=== PATIENT | male | born 1970 | race Caucasian/White ===

== ENCOUNTER 2017-10-30 16:23 | Inpatient (IN) ==
[2017-10-30] MEDS ORDERED: Sod Chloride 0.9% Inj 1,000 ML IV.SIG ONE ×2 (17:05→18:33)
[2017-10-30] MEDS ORDERED: Morphine Inj 4 MG/ML Vial IV.PUSH ONE (17:05)
--- NOTE | 2017-10-30 17:09 | ED ---
HPI General Chief Complaint: Abdominal Pain Stated Complaint: Abd pain Time Seen by Provider: 10/30/17 16:58 Source: patient Mode of arrival: ambulatory Limitations: no limitations History of Present Illness MD complaint: abdominal pain Onset (ago): day(s) (3) Pain Consistency: intermittent Location: epigastric Severity: mild Severity scale (1-10): 4 Quality: fullness Radiation: none Migration to: no migration Relieving factors: nothing Exacerbating factors: nothing Associated symptoms: denies other symptoms Related Data Home Medications Medication Instructions Recorded Confirmed No Known Home Medications 10/30/17 10/30/17 Allergies Allergy/AdvReac Type Severity Reaction Status Date / Time No Known Allergies Allergy Verified 10/30/17 16:55 Review of Systems ROS: all other systems reviewed are negative PMFSH History History Provided By: Patient Surgical History Surgical History H/O hernia repair (Acute) History of appendectomy (Acute) History of tonsillectomy (Acute) Social History Social History Substance History: No History of Abuse Smoking Status: Current every day smoker Tobacco Type: Cigarettes How Often Do You Have a Drink Containing Alcohol: Monthly or less Recent Travel in [place] within the Last 8 Weeks: No Recent Out of Country Travel within the Last 8 Weeks: No Immunization History Tetanus Immunization: Unsure Hx Influenza Vaccine This Season: No Exam HENMT Head: normocephalic and atraumatic Nose: no nasal discharge and no epistaxis Mouth: moist mucous membranes Eyes Sclera: normal sclerae Pupils: PERRL Neck Neck: trachea midline and no JVD Resp Effort & Inspection: no use of accessory muscles Auscultation: clear to auscultation bilaterally Cardio Rate: regular rate Rhythm: regular rhythm Heart Sounds: no murmurs GI Inspection: non-distended Palpation: soft, no hepatosplenomegaly and tender (epigastric) in the epigastrum , in the RUQ and Tillman's sign positive Percussion: normal to percussion Auscultation: normal bowel sounds Skin General: dry skin (warm) Neuro General: alert and awake Cranial Nerves: other Speech: speech normal Motor: no movement abnormalities noted Extrem General: normal to inspection, no clubbing, no cyanosis and no edema Psych Mood: congruent mood Affect: normal affect Judgment: judgment good Course Initial Documented Vital Signs Temperature 98.0 F 10/30/17 16:27 Pulse Rate 107 H 10/30/17 16:27 Respiratory Rate 18 10/30/17 16:27 Blood Pressure 134/72 10/30/17 16:27 Pulse Oximetry 100 10/30/17 16:27 Last Documented Vital Signs Temperature 98.0 F 10/30/17 16:27 Pulse Rate 107 H 10/30/17 16:27 Respiratory Rate 18 10/30/17 16:27 Blood Pressure 134/72 10/30/17 16:27 Pulse Oximetry 100 10/30/17 16:27 Medical Decision Making MDM Narrative Medical decision making narrative: CBC shows mild leukocytosis of 13,000 with 78 % neutrophilia, no anemia, normal platelet count. Normal kidney liver and pancreatic functions Normal electrolytes CT abdomen and pelvis read by radiologist shows cholelithiasis in addition there is also pericholecystic wall thickening and inflammatory stranding characteristic and consistent with cholecystitis Medical Screen Exam Complete: Yes Emergency Medical Condition: Yes Differential Diagnosis Differential Diagnosis: colitis v pancreatitis v hepatitits v biliary colic v cholecystitis versus perforated ulcer Medical Records Medical records reviewed: Yes I reviewed the patient's medical records. Lab Data Lab results reviewed: Yes I reviewed the patient's lab results. Result diagrams: 10/30/17 17:37 10/30/17 17:37 Lab Results 10/30/17 10/30/17 Range/Units 17:37 17:37 WBC 13.2 H (4.0-11.0) th/mm3 RBC 4.16 L (4.50-5.90) mil/mm3 Hgb 13.0 (13.0-17.0) gm/dL Hct 37.8 L (39.0-51.0) % MCV 91.0 (80.0-100.0) fL MCH 31.2 (27.0-34.0) pg MCHC 34.3 (32.0-36.0) % RDW 13.2 (11.6-17.2) % Plt Count 217 (150-450) th/mm3 MPV 7.9 (7.0-11.0) fL Neut % (Auto) 77.8 H (16.0-70.0) % Lymph % (Auto) 12.0 (9.0-44.0) % [place] % (Auto) 8.3 H (0.0-8.0) % Eos % (Auto) 1.3 (0.0-4.0) % Baso % (Auto) 0.6 (0.0-2.0) % Neut # (Auto) 10.3 H (1.8-7.7) th/mm3 Lymph # (Auto) 1.6 (1.0-4.8) th/mm3 [place] # (Auto) 1.1 H (0.0-0.9) th/mm3 Eos # (Auto) 0.2 (0.0-0.4) th/mm3 Baso # (Auto) 0.1 (0.0-0.2) th/mm3 WBC Differential . Differential Comment Auto diff final Sodium 139 (136-145) meq/L Potassium 3.7 (3.5-5.1) meq/L Chloride 102 (98-107) meq/L Carbon Dioxide 28.4 (21.0-32.0) meq/L Anion Gap 9 (5-15) meq/L BUN 20 H (7-18) mg/dL Creatinine 1.00 (0.60-1.30) mg/dL Estimated GFR 80 L (>89) mL/min Random Glucose 91 (74-106) mg/dL Calcium 9.2 (8.5-10.1) mg/dL Total Bilirubin 1.0 (0.2-1.0) mg/dL AST 22 (15-37) U/L ALT 23 (12-78) U/L Alkaline Phosphatase 49 (45-117) U/L Total Protein 7.4 (6.4-8.2) g/dL Albumin 3.6 (3.4-5.0) g/dL Lipase 58 L (73-393) U/L Imaging Data Attestation: I personally reviewed and interpreted this imaging study as follows : Radiologist's impression: Abdomen/Pelvis CT 10/30/17 17:05 CONCLUSION: 1. There is cholelithiasis, gallbladder wall thickening and pericholecystic inflammatory stranding characteristic of cholecystitis. 2. Atherosclerosis. 3. Nonobstructing right renal calculi. 4. Tiny cyst is noted in the right lobe of the liver measuring 8 mm. Discharge Plan Discharge Disposition Patient Disposition: 30 Still Patient Discharge Condition Condition: Stable Discharge Details Diagnosis: Acute cholecystitis due to biliary calculus Physicians Team ED Provider: Alireza Dior Primary Care Provider: Primary Care Olga Cramer Rxs /Orders / Referrals /Forms Prescriptions: No Action No Known Home Medications RF: 0 Status ED Status: With Doctor
--- NOTE | 2017-10-30 17:58 | CT ---
EXAM DATE: 10/30/2017 5:53 PM EDT AGE/SEX: 46 years / Male INDICATIONS: Diffuse abdominal pain. CLINICAL DATA: This is the patient's initial encounter. Patient reports that signs and symptoms have been present for 1 day and indicates a pain score of 6/10. MEDICAL/SURGICAL HISTORY: None. . Appendectomy. Hernia repair. RADIATION DOSE: 6.64 CTDI (mGy) COMPARISON: No prior exams available for comparison. TECHNIQUE: Multiple contiguous axial images were obtained through the abdomen. Images were obtained using multiple row detector helical technique. Using automated exposure control and adjustment of the mA and/or kV according to patient size, radiation dose was kept as low as reasonably achievable to o btain optimal diagnostic quality images. DICOM format image data is available electronically for rev iew and comparison. FINDINGS: Lung bases are clear. The osseous structures are intact. No pleural or pericardial effusions are seen . Cholelithiasis is noted. The gallbladder is thick walled with induration of the pericholecystic fat . This is characteristic of cholecystitis. Left kidney, spleen, pancreas, adrenal glands are unremark able. 8 mm hepatic cyst. At the midpole of the right kidney are 2 tiny nonobstructing stones with a n onobstructing calculus at the lower pole as well.. Tiny fat-containing umbilical hernia. A few scatte red atherosclerotic calcifications of the aorta and iliac vessels are noted. Urinary bladder is unrem arkable. No evidence of bowel obstruction. Stomach, small bowel, large bowel are normal in appearance . CONCLUSION: 1. There is cholelithiasis, gallbladder wall thickening and pericholecystic inflammatory stranding c haracteristic of cholecystitis. 2. Atherosclerosis. 3. Nonobstructing right renal calculi. 4. Tiny cyst is noted in the right lobe of the liver measuring 8 mm. Electronically signed by: Keshav Villeda MD 10/30/2017 5:57 PM EDT
[2017-10-30 18:28] LABS: Baso # (Auto) 0.1 th/mm3 (0.0-0.2); Baso % (Auto) 0.6 % (0.0-2.0); Eos # (Auto) 0.2 th/mm3 (0.0-0.4); Eos % (Auto) 1.3 % (0.0-4.0); Hematocrit 37.8 % (39.0-51.0); Lymph # (Auto) 1.6 th/mm3 (1.0-4.8); Mean Corpuscular HGB Conc 34.3 % (32.0-36.0); Mean Corpuscular Hemoglobin 31.2 pg (27.0-34.0); Mean Platelet Volume 7.9 fL (7.0-11.0); Mono # (Auto) 1.1 th/mm3 (0.0-0.9); Mono % (Auto) 8.3 % (0.0-8.0); Neut # (Auto) 10.3 th/mm3 (1.8-7.7); Neut % (Auto) 77.8 % (16.0-70.0); Platelet Count 217 th/mm3 (150-450); Red Blood Count 4.16 mil/mm3 (4.50-5.90); Red Cell Distribution Width 13.2 % (11.6-17.2); White Blood Count 13.2 th/mm3 (4.0-11.0)
[2017-10-30] MEDS ORDERED: Piperacil/Tazo 3.375 GM Premix 50 ML IV.SIG ONE (18:33)
[2017-10-30 18:51] LABS: Albumin 3.6 g/dL (3.4-5.0); Anion Gap 9 meq/L (5-15); Aspartate Aminotransferase 22 U/L (15-37); Blood Urea Nitrogen 20 mg/dL (7-18); Calcium 9.2 mg/dL (8.5-10.1); Carbon Dioxide 28.4 meq/L (21.0-32.0); Chloride 102 meq/L (98-107); Glomerular Filtration Rate 80 mL/min (>89); Glucose,Random 91 mg/dL (74-106); Lipase 58 U/L (73-393); Potassium 3.7 meq/L (3.5-5.1); Sodium 139 meq/L (136-145)
[2017-10-30 18:53] LABS: Alanine Aminotransferase 23 U/L (12-78)
[2017-10-30 18:54] LABS: Alkaline Phosphatase 49 U/L (45-117); Total Protein 7.4 g/dL (6.4-8.2)
[2017-10-30 20:21] LABS: Bilirubin,Urine Negative (Negative); Clarity,Urine Clear (Clear); Color,Urine Straw (Yellw/Straw); Glucose,Urine (UA) Negative (Negative); Leukocyte Esterase,Urine Negative (Negative); Nitrite,Urine Negative (Negative); Specific Gravity,Urine 1.005 (1.002-1.035)
--- NOTE | 2017-10-30 20:55 | P.HP ---
History of Present Illness Service: [facility] Primary Care Physician: No Primary Care Physician History of Present Illness: 46-year-old male with no significant past medical history presents the emergency department for evaluation of abdominal pain 3 days. The patient reports that 3 days ago he began having epigastric abdominal pain. He denies any nausea/vomiting. No fevers/chills. No chest pain or shortness of breath. CT concerning for acute cholecystitis. Inpatient Certification: I certify that the inpatient services were ordered in accordance with Medicare regulations governing the order. This includes certification that hospital inpatient services are reasonable and necessary and in the case of services not specified as inpatient-only under 42 CFR 419.22(n), that they are appropriately provided as inpatient services in accordance to with the 2-midnight benchmark under 43 CFR 412.3(e) Estimated Total Length of Stay (Days): 2 Plans for Post Hospital Care: Home Review of Systems All other systems reviewed negative except as stated in HPI [facility] - History History Provided By: Patient - Medical History Medical History: Medical History (Last Updated 10/30/17 @ 20:53 by Ciara Jimenez MD) No active medical problems No pertinent past medical history - Surgical History Surgical History: Surgical History (Last Reviewed 10/30/17 @ 17:07 by Alireza Dior) H/O hernia repair History of appendectomy History of tonsillectomy - Family History Family History: Family History (Last Updated 10/30/17 @ 20:53 by Ciara Jimenez MD) Other CAD (coronary artery disease) Diabetes mellitus - Tobacco History Tobacco Use In Past 30 Days: Yes Smoking Status: Current every day smoker Tobacco Type: Cigarettes - Alcohol History How Often Do You Have a Drink Containing Alcohol: Monthly or less - Substance Use History Substance History: No History of Abuse - Travel History Recent Travel in the [place] Within the Last 8 Weeks: No Recent Travel Out of the Country Within the Last 8 Weeks: No - Immunization History Tetanus Immunization: Unsure Hx Influenza Vaccine This Season: No Medications and Allergies Active Medications: Active Medications Sodium Chloride (Ns Inj) 1,000 mls @ 100 mls/hr IV.CONT .Q10H KEVIN Morphine Sulfate (Morphine Inj) 2 mg IV.PUSH Q3H PRN PRN Reason: pain 1 to 10 Ondansetron HCl (Zofran Inj) 4 mg IV.PUSH Q6H PRN PRN Reason: NAUSEA OR VOMITING Sodium Chloride (Ns Flush) 2 ml IV.FLUSH PRN PRN PRN Reason: FLUSH AFTER USING IV ACCESS Allergies Allergy/AdvReac Type Severity Reaction Status Date / Time No Known Allergies Allergy Verified 10/30/17 16:55 Home Medications Medication Instructions Recorded Confirmed Type No Known Home Medications 10/30/17 10/30/17 History Exam Vital signs: Vital Signs 10/30/17 16:27 Temperature 98.0 F Pulse Rate 107 H Respiratory Rate 18 Blood Pressure 134/72 Pulse Oximetry 100 Intake & Output 10/30/17 10/30/17 10/31/17 06:59 18:59 06:59 Intake Total 1150 / 1150 Balance 1150 / 1150 Weight 175 kg Intake: IV 1150 / 1150 Zosyn 3.375 GM Premix 50 ML @ 50 / 50 100 mls/hr IV.SIG ONCE ONE Rx#: [id number] NS Inj 1,000 ML @ Wide Open IV. 1000 / 1000 SIG BOLUS ONE Rx#:[id number] Flagyl 500 MG Inj 100 ML @ 100 100 / 100 mls/hr IV.SIG ONCE ONE Rx#: [id number] Narrative: Gen.: No acute distress Head: Normocephalic. Atraumatic. EENT: Pupils equal round and reactive to light. Nose without drainage. Airway intact. Throat without injection. Cardiovascular: Regular rate and rhythm. No murmurs, rubs or gallops. Respiratory: Lungs clear to auscultation bilaterally. No wheezes or rhonchi. Abdomen: Soft, diffusely tender to palpation in the epigastrium and right upper quadrant, nondistended. No peritoneal signs. Positive Tillman's sign. Musculoskeletal: No gross deformities. No edema. Skin: No obvious rashes or erythema. Neuro: Sensory and motor grossly intact. Cranial nerves II through XII grossly intact. Results - Labs CBC & Chem 7: 10/30/17 17:37 10/30/17 17:37 Labs: Laboratory Results - last 24 hr 10/30/17 10/30/17 10/30/17 17:37 17:37 19:51 WBC 13.2 H RBC 4.16 L Hgb 13.0 Hct 37.8 L MCV 91.0 MCH 31.2 MCHC 34.3 RDW 13.2 Plt Count 217 MPV 7.9 Neut % (Auto) 77.8 H Lymph % (Auto) 12.0 [place] % (Auto) 8.3 H Eos % (Auto) 1.3 Baso % (Auto) 0.6 Neut # (Auto) 10.3 H Lymph # (Auto) 1.6 [place] # (Auto) 1.1 H Eos # (Auto) 0.2 Baso # (Auto) 0.1 WBC Differential . Differential Comment Auto diff final Sodium 139 Potassium 3.7 Chloride 102 Carbon Dioxide 28.4 Anion Gap 9 BUN 20 H Creatinine 1.00 Estimated GFR 80 L Random Glucose 91 Calcium 9.2 Total Bilirubin 1.0 AST 22 ALT 23 Alkaline Phosphatase 49 Total Protein 7.4 Albumin 3.6 Lipase 58 L Urine Color Straw Urine Clarity Clear Urine pH 5.0 Ur Specific [place] 1.005 Urine Protein Negative Urine Glucose (UA) Negative Urine Ketones Negative Urine Occult Blood Small H Urine Nitrate Negative Urine Bilirubin Negative Urine Urobilinogen Less than 2 Ur Leukocyte Esterase Negative Urine RBC 1 Urine WBC 2 Micro UA Comment Culture not ind Ur Microscopic Review Not Reportable Urine Culture Comments Culture not ind - Imaging Impressions Abdomen/Pelvis CT 10/30/17 17:05 CONCLUSION: 1. There is cholelithiasis, gallbladder wall thickening and pericholecystic inflammatory stranding characteristic of cholecystitis. 2. Atherosclerosis. 3. Nonobstructing right renal calculi. 4. Tiny cyst is noted in the right lobe of the liver measuring 8 mm. Caprini VTE Risk Assessment Caprini VTE Risk Assessment: No/Low Risk (score <= 1) Caprini Risk Assessment Model: Point Value = 1 Point Value = 2 Point Value = 3 Point Value = 5 Age 41-60 Minor surgery BMI > 25 kg/m2 Swollen legs Varicose veins or History of unexplained or recurrent spontaneous Oral contraceptives or hormone replacement Sepsis (< 1 month) Serious lung disease, including pneumonia (< 1 month) Abnormal pulmonary function Acute myocardial infarction Congestive heart failure (< 1 month) History of inflammatory bowel disease Medical patient at bed rest Age 61-74 Arthroscopic surgery Major open surgery (> 45 min) Laparoscopic surgery (> 45 min) Malignancy Confined to bed (> 72 hours) Immobilizing plaster cast Central venous access Age >= 75 History of VTE Family history of VTE Factor V Leiden Prothrombin [id number] Lupus anticoagulant Anticardiolipin antibodies Elevated serum homocysteine Heparin-induced thrombocytopenia Other congenital or acquired thrombophilia Stroke (< 1 month) Elective arthroplasty Hip, pelvis, or leg fracture Acute spinal cord injury (< 1 month) Prophylaxis Regimen: Total Risk Factor Score Risk Level Prophylaxis Regimen 0-1 Low Early ambulation 2 Moderate Order ONE of the following: *Sequential Compression Device (SCD) *Heparin 5000 units SQ BID 3-4 Higher Order ONE of the following medications: *Heparin 5000 units SQ TID *Enoxaparin/Lovenox 40 mg SQ daily (WT < 150 kg, CrCl > 30 mL/min) *Enoxaparin/Lovenox 30 mg SQ daily (WT < 150 kg, CrCl > 10-29 mL/min) *Enoxaparin/Lovenox 30 mg SQ BID (WT < 150 kg, CrCl > 30 mL/min) AND/OR *Sequential Compression Device (SCD) 5 or more Highest Order ONE of the following medications: *Heparin 5000 units SQ TID (Preferred with Epidurals) *Enoxaparin/Lovenox 40 mg SQ daily (WT < 150 kg, CrCl > 30 mL/min) *Enoxaparin/Lovenox 30 mg SQ daily (WT < 150 kg, CrCl > 10-29 mL/min) *Enoxaparin/Lovenox 30 mg SQ BID (WT < 150 kg, CrCl > 30 mL/min) AND *Sequential Compression Device (SCD) Assessment and Plan - Plan Assessment/plan: 1. Acute cholecystitis CT of the abdomen/pelvis significant for cholelithiasis, gallbladder wall thickening and pericholecystic inflammatory stranding consistent with cholecystitis Anuj General surgery consulted, appreciate assistance FEN N.p.o. Electrolytes: Monitor and replete as needed NS at 100 cc/hour
[2017-10-30] MEDS: Sod Chloride 0.9% Inj 1,000 ML IV.CONT SCH (21:45)
[2017-10-31] MEDS: Piperacil/Tazo 3.375 GM Premix 50 ML IV.SIG SCH ×4 (01:00→18:43)
[2017-10-31 07:02] LABS: Baso # (Auto) 0.1 th/mm3 (0.0-0.2); Baso % (Auto) 0.4 % (0.0-2.0); Eos # (Auto) 0.2 th/mm3 (0.0-0.4); Eos % (Auto) 1.7 % (0.0-4.0); Hematocrit 36.5 % (39.0-51.0); Hemoglobin 12.4 gm/dL (13.0-17.0); Lymph # (Auto) 1.3 th/mm3 (1.0-4.8); Lymph % (Auto) 9.8 % (9.0-44.0); Mean Corpuscular Hemoglobin 30.8 pg (27.0-34.0); Mean Corpuscular Volume 90.7 fL (80.0-100.0); Mean Platelet Volume 8.3 fL (7.0-11.0); Mono # (Auto) 1.2 th/mm3 (0.0-0.9); Neut # (Auto) 10.5 th/mm3 (1.8-7.7); Neut % (Auto) 79.1 % (16.0-70.0); Platelet Count 215 th/mm3 (150-450); Red Blood Count 4.02 mil/mm3 (4.50-5.90); Red Cell Distribution Width 13.3 % (11.6-17.2); White Blood Count 13.3 th/mm3 (4.0-11.0)
[2017-10-31 07:19] LABS: Anion Gap 11 meq/L (5-15); Blood Urea Nitrogen 16 mg/dL (7-18); Calcium 8.2 mg/dL (8.5-10.1); Carbon Dioxide 24.6 meq/L (21.0-32.0); Chloride 108 meq/L (98-107); Glomerular Filtration Rate Greater Than 89 mL/min (>89); Glucose,Random 91 mg/dL (74-106); Potassium 3.4 meq/L (3.5-5.1); Sodium 144 meq/L (136-145)
[2017-10-31] MEDS: Morphine Sulfate Inj 2 MG/ML Vial IV.PUSH PRN ×3 (09:46→23:38)
[2017-10-31] MEDS: Sod Chloride 0.9% Inj 1,000 ML IV.CONT SCH ×2 (09:47→17:49)
--- NOTE | 2017-10-31 10:06 | P.PN ---
Subjective Interval history: Pain is controlled by meds No n/v/d/c No fever ro chills Awaiting for surgery He is getting hungry as has been NPO Physical Exam Vital signs: Vital Signs 10/30/17 16:27 10/30/17 20:03 10/30/17 20:36 Temperature 98.0 F Pulse Rate 107 H 90 90 Respiratory Rate 18 18 18 Blood Pressure 134/72 130/70 Pulse Oximetry 100 99 99 10/31/17 00:00 10/31/17 08:00 Temperature 97.7 F 97.9 F Pulse Rate 92 H 93 H Respiratory Rate 17 18 Blood Pressure 118/67 119/67 Pulse Oximetry 96 96 Intake & Output 10/30/17 10/31/17 10/31/17 18:59 06:59 18:59 Intake Total 2250 / 2250 1000 / 1000 Balance 2250 / 2250 1000 / 1000 Weight 175 kg 175 kg Intake: IV 2250 / 2250 1000 / 1000 NS Inj 1,000 ML @ 100 mls/hr IV 1000 / 1000 .CONT .Q10H KEVIN Rx#:[id number] Zosyn 3.375 GM Premix 50 ML @ 150 / 150 100 mls/hr IV.SIG Q6H KEVIN Rx#: [id number] NS Inj 1,000 ML @ Wide Open IV. 1999 / 1999 SIG BOLUS ONE Rx#:[id number] Flagyl 500 MG Inj 100 ML @ 100 100 / 100 mls/hr IV.SIG ONCE ONE Rx#: [id number] Oral 0 / 0 Other: # Voids 1 Date of Last Bowel Movement 10/30/17 Weight On Admission 175 kg Narrative: Gen.: 46 yo male, in no acute distress Cardiovascular: Regular rate and rhythm. No murmurs, rubs or gallops. Respiratory: Lungs clear to auscultation bilaterally. No wheezes or rhonchi. Abdomen: Soft, diffusely tender to palpation in the epigastrium and right upper quadrant, nondistended. No peritoneal signs. Positive Tillman's sign. Musculoskeletal: No gross deformities. No edema. Skin: No obvious rashes or erythema. Neuro: Sensory and motor grossly intact. Cranial nerves II through XII grossly intact. Results - Labs CBC & Chem 7: 10/31/17 05:40 10/31/17 05:40 Laboratory Results - last 24 hr 09/02/0410/30/17 10/30/17 17:37 17:37 19:51 WBC 13.2 H RBC 4.16 L Hgb 13.0 Hct 37.8 L MCV 91.0 MCH 31.2 MCHC 34.3 RDW 13.2 Plt Count 217 MPV 7.9 Neut % (Auto) 77.8 H Lymph % (Auto) 12.0 [place] % (Auto) 8.3 H Eos % (Auto) 1.3 Baso % (Auto) 0.6 Neut # (Auto) 10.3 H Lymph # (Auto) 1.6 [place] # (Auto) 1.1 H Eos # (Auto) 0.2 Baso # (Auto) 0.1 WBC Differential . Differential Comment Auto diff final Sodium 139 Potassium 3.7 Chloride 102 Carbon Dioxide 28.4 Anion Gap 9 BUN 20 H Creatinine 1.00 Estimated GFR 80 L Random Glucose 91 Calcium 9.2 Total Bilirubin 1.0 AST 22 ALT 23 Alkaline Phosphatase 49 Total Protein 7.4 Albumin 3.6 Lipase 58 L Urine Color Straw Urine Clarity Clear Urine pH 5.0 Ur Specific [place] 1.005 Urine Protein Negative Urine Glucose (UA) Negative Urine Ketones Negative Urine Occult Blood Small H Urine Nitrate Negative Urine Bilirubin Negative Urine Urobilinogen Less than 2 Ur Leukocyte Esterase Negative Urine RBC 1 Urine WBC 2 Micro UA Comment Culture not ind Ur Microscopic Review Not Reportable Urine Culture Comments Culture not ind 10/31/17 10/31/17 05:40 05:40 WBC 13.3 H RBC 4.02 L Hgb 12.4 L Hct 36.5 L MCV 90.7 MCH 30.8 MCHC 34.0 RDW 13.3 Plt Count 215 MPV 8.3 Neut % (Auto) 79.1 H Lymph % (Auto) 9.8 [place] % (Auto) 9.0 H Eos % (Auto) 1.7 Baso % (Auto) 0.4 Neut # (Auto) 10.5 H Lymph # (Auto) 1.3 [place] # (Auto) 1.2 H Eos # (Auto) 0.2 Baso # (Auto) 0.1 WBC Differential . Differential Comment Auto diff final Sodium 144 Potassium 3.4 L Chloride 108 H Carbon Dioxide 24.6 Anion Gap 11 BUN 16 Creatinine 0.86 Estimated GFR Greater than 89 Random Glucose 91 Calcium 8.2 L D Total Bilirubin AST ALT Alkaline Phosphatase Total Protein Albumin Lipase Urine Color Urine Clarity Urine pH Ur Specific [place] Urine Protein Urine Glucose (UA) Urine Ketones Urine Occult Blood Urine Nitrate Urine Bilirubin Urine Urobilinogen Ur Leukocyte Esterase Urine RBC Urine WBC Micro UA Comment Ur Microscopic Review Urine Culture Comments - Imaging Impressions Abdomen/Pelvis CT 10/30/17 17:05 CONCLUSION: 1. There is cholelithiasis, gallbladder wall thickening and pericholecystic inflammatory stranding characteristic of cholecystitis. 2. Atherosclerosis. 3. Nonobstructing right renal calculi. 4. Tiny cyst is noted in the right lobe of the liver measuring 8 mm. Assessment and Plan - Plan 1. Acute cholecystitis CT of the abdomen/pelvis significant for cholelithiasis, gallbladder wall thickening and pericholecystic inflammatory stranding consistent with cholecystitis Zosyn General surgery consulted, appreciate assistance Plan for surgery in the afternoon FEN NPO plan for surgery in the afternoon Electrolytes: Monitor and replete as needed NS at 100 cc/hour
--- NOTE | 2017-10-31 10:16 | P.CONGS ---
[facility] Gen Surgery Consult Note Consult date: 10/31/17 Reason for consult: abdominal pain Requesting physician: Ciara Jimenez Narrative: CONSULTATION NOTE FOR SURGICAL ATTENDING, DR. JIGNESH LANIER This is a 46 year old male with no known significant past medical history who presented to the ED yesterday with complaints of three days of abdominal pain. Nausea severe pain right upper quadrant he reports chills but he is not sure if he had any fevers. A CT abdomen/pelvis was obtained which shows a thickened gallbladder wall, pericholecystic fluid, cholelithiasis with a concern for cholelithiasis. Of note, the patient has not seen a physician in many years. His liver enzymes are normal. A General Surgery consultation has been requested. Review of Systems All other systems reviewed negative except as stated in [facility] PMF - History History Provided By: Patient - Medical History Medical History: Medical History (Last Reviewed 11/01/17 @ 10:20 by Jignesh Lanier MD) No active medical problems No pertinent past medical history - Surgical History Surgical History: Surgical History (Last Reviewed 11/01/17 @ 10:20 by Jignesh Lanier MD) H/O hernia repair History of appendectomy History of tonsillectomy - Family History Family History: Family History (Last Reviewed 11/01/17 @ 10:20 by Jignesh Lanier MD) Other CAD (coronary artery disease) Diabetes mellitus - Tobacco History Second Hand Smoke Exposure: No Tobacco Use In Past 30 Days: No Smoking Status: Current every day smoker Tobacco Type: Cigarettes - Alcohol History How Often Do You Have a Drink Containing Alcohol: Never - Substance Use History Substance History: No History of Abuse - Travel History Recent Travel in the [place] Within the Last 8 Weeks: No Recent Travel Out of the Country Within the Last 8 Weeks: No - Immunization History Tetanus Immunization: Unsure Hx Influenza Vaccine This Season: No Medications and Allergies Allergies Allergy/AdvReac Type Severity Reaction Status Date / Time No Known Allergies Allergy Verified 10/30/17 16:55 Home Medications Medication Instructions Recorded Confirmed Type No Known Home Medications 10/30/17 10/30/17 History Active Medications: Active Medications Sodium Chloride (Ns Inj) 1,000 mls @ 100 mls/hr IV.CONT .Q10H KEVIN Last Admin: 10/31/17 09:47 Dose: 100 mls/hr Piperacillin/Tazobactam/Dextrose (Zosyn 3.375 Gm Premix) 50 mls @ 100 mls/hr IV.SIG Q6H KEVIN Last Infusion: 10/31/17 06:45 Dose: Infused Morphine Sulfate (Morphine Inj) 2 mg IV.PUSH Q3H PRN PRN Reason: pain 1 to 10 Last Admin: 10/31/17 09:46 Dose: 2 mg Ondansetron HCl (Zofran Inj) 4 mg IV.PUSH Q6H PRN PRN Reason: NAUSEA OR VOMITING Sodium Chloride (Ns Flush) 2 ml IV.FLUSH PRN PRN PRN Reason: FLUSH AFTER USING IV ACCESS Exam Vital signs: Vital Signs 10/30/17 16:27 10/30/17 20:03 10/30/17 20:36 Temperature 98.0 F Pulse Rate 107 H 90 90 Respiratory Rate 18 18 18 Blood Pressure 134/72 130/70 Pulse Oximetry 100 99 99 10/31/17 00:00 10/31/17 08:00 Temperature 97.7 F 97.9 F Pulse Rate 92 H 93 H Respiratory Rate 17 18 Blood Pressure 118/67 119/67 Pulse Oximetry 96 96 Intake & Output 10/30/17 10/31/17 10/31/17 18:59 06:59 18:59 Intake Total 2250 / 2250 1000 / 1000 Balance 2250 / 2250 1000 / 1000 Weight 175 kg 175 kg Intake: IV 2250 / 2250 1000 / 1000 NS Inj 1,000 ML @ 100 mls/hr IV 1000 / 1000 .CONT .Q10H KEVIN Rx#:[id number] Zosyn 3.375 GM Premix 50 ML @ 150 / 150 100 mls/hr IV.SIG Q6H KEVIN Rx#: [id number] NS Inj 1,000 ML @ Wide Open IV. 1999 SIG BOLUS ONE Rx#:[id number] Flagyl 500 MG Inj 100 ML @ 100 100 / 100 mls/hr IV.SIG ONCE ONE Rx#: [id number] Oral 0 / 0 Other: # Voids 1 Date of Last Bowel Movement 10/30/17 Weight On Admission 175 kg Narrative: GENERAL: Very pleasant 46 year old male resting in bed in no acute distress. SKIN: Warm and dry. HEAD: Atraumatic. Normocephalic. EYES: Pupils equal and round. No scleral icterus. No injection or drainage. ENT: No nasal bleeding or discharge. Mucous membranes pink and moist. NECK: Trachea midline. CARDIOVASCULAR: Regular rate and rhythm. RESPIRATORY: No accessory muscle use. Clear to auscultation. Breath sounds equal bilaterally. GASTROINTESTINAL: Abdomen soft, nondistended. RUQ tenderness with palpation. He has a well healed RLQ scar. MUSCULOSKELETAL: Extremities without clubbing, cyanosis, or edema. No obvious deformities. NEUROLOGICAL: Awake and alert. No obvious cranial nerve deficits. Motor grossly within normal limits. Five out of 5 muscle strength in the arms and legs. Normal speech. PSYCHIATRIC: Appropriate mood and affect; insight and judgment normal. Results - Labs 10/31/17 05:40 10/31/17 05:40 Abnormal lab results 10/30/17 10/30/17 10/30/17 Range/Units 17:37 17:37 19:51 WBC 13.2 H (4.0-11.0) th/mm3 RBC 4.16 L (4.50-5.90) mil/mm3 Hgb (13.0-17.0) gm/dL Hct 37.8 L (39.0-51.0) % Neut % (Auto) 77.8 H (16.0-70.0) % [place] % (Auto) 8.3 H (0.0-8.0) % Neut # (Auto) 10.3 H (1.8-7.7) th/mm3 [place] # (Auto) 1.1 H (0.0-0.9) th/mm3 Potassium (3.5-5.1) meq/L Chloride (98-107) meq/L BUN 20 H (7-18) mg/dL Estimated GFR 80 L (>89) mL/min Calcium (8.5-10.1) mg/dL Lipase 58 L (73-393) U/L Urine Occult Blood Small H (Negative) 10/31/17 10/31/17 Range/Units 05:40 05:40 WBC 13.3 H (4.0-11.0) th/mm3 RBC 4.02 L (4.50-5.90) mil/mm3 Hgb 12.4 L (13.0-17.0) gm/dL Hct 36.5 L (39.0-51.0) % Neut % (Auto) 79.1 H (16.0-70.0) % [place] % (Auto) 9.0 H (0.0-8.0) % Neut # (Auto) 10.5 H (1.8-7.7) th/mm3 [place] # (Auto) 1.2 H (0.0-0.9) th/mm3 Potassium 3.4 L (3.5-5.1) meq/L Chloride 108 H (98-107) meq/L BUN (7-18) mg/dL Estimated GFR (>89) mL/min Calcium 8.2 L D (8.5-10.1) mg/dL Lipase (73-393) U/L Urine Occult Blood (Negative) Diabetes panel 10/30/17 10/31/17 Range/Units 17:37 05:40 Sodium 139 144 (136-145) meq/L Potassium 3.7 3.4 L (3.5-5.1) meq/L Chloride 102 108 H (98-107) meq/L Carbon Dioxide 28.4 24.6 (21.0-32.0) meq/L BUN 20 H 16 (7-18) mg/dL Creatinine 1.00 0.86 (0.60-1.30) mg/dL Calcium 9.2 8.2 L D (8.5-10.1) mg/dL AST 22 (15-37) U/L ALT 23 (12-78) U/L Alkaline Phosphatase 49 (45-117) U/L Total Protein 7.4 (6.4-8.2) g/dL Albumin 3.6 (3.4-5.0) g/dL Calcium panel 10/30/17 10/31/17 Range/Units 17:37 05:40 Calcium 9.2 8.2 L D (8.5-10.1) mg/dL Albumin 3.6 (3.4-5.0) g/dL Pituitary panel 10/30/17 10/31/17 Range/Units 17:37 05:40 Sodium 139 144 (136-145) meq/L Potassium 3.7 3.4 L (3.5-5.1) meq/L Chloride 102 108 H (98-107) meq/L Carbon Dioxide 28.4 24.6 (21.0-32.0) meq/L BUN 20 H 16 (7-18) mg/dL Creatinine 1.00 0.86 (0.60-1.30) mg/dL Calcium 9.2 8.2 L D (8.5-10.1) mg/dL Adrenal panel 10/30/17 10/31/17 Range/Units 17:37 05:40 Sodium 139 144 (136-145) meq/L Potassium 3.7 3.4 L (3.5-5.1) meq/L Chloride 102 108 H (98-107) meq/L Carbon Dioxide 28.4 24.6 (21.0-32.0) meq/L BUN 20 H 16 (7-18) mg/dL Creatinine 1.00 0.86 (0.60-1.30) mg/dL Calcium 9.2 8.2 L D (8.5-10.1) mg/dL Total Bilirubin 1.0 (0.2-1.0) mg/dL AST 22 (15-37) U/L ALT 23 (12-78) U/L Alkaline Phosphatase 49 (45-117) U/L Total Protein 7.4 (6.4-8.2) g/dL Albumin 3.6 (3.4-5.0) g/dL All other labs normal. - Imaging CT scan - abdomen: report reviewed, image reviewed Additional studies: ITS Impressions Abdomen/Pelvis CT 10/30/17 17:05 CONCLUSION: 1. There is cholelithiasis, gallbladder wall thickening and pericholecystic inflammatory stranding characteristic of cholecystitis. 2. Atherosclerosis. 3. Nonobstructing right renal calculi. 4. Tiny cyst is noted in the right lobe of the liver measuring 8 mm. Assessment and Plan - Assessment (1) Acute cholecystitis Code(s): K81.0 - Acute cholecystitis Status: Acute Plan: 46 year old male with acute cholecystitis -Plan for lap francis this afternoon -Explained procedure and all questions answered -Obtain consents -IVF -Zosyn -Thank you for this consult; We will continue to follow - Plan Discussed Condition With: Dr. Yannick Roger RN Mr. Alberto + family at bedside - Attending Attestation NOTE FOR SURGICAL ATTENDING, DR. JIGNESH LANIER Patient agrees to proceed with laparoscopic cholecystectomy I agree with above assessment and plan. The exam, history, and the medical decision-making described in the above note were completed with the assistance of the mid-level provider. I reviewed and agree with the findings presented. I attest that I had a [id number] encounter with the patient on the same day, and personally performed and documented my assessment and findings in the medical record. The following services were provided during this hospital visit: Chart data review, vital sign assessments/reviewing monitor data Review of consultations notes if present. Medication orders/review and/or management Ordering and/or reviewing lab tests Ordering and/or interpreting/reviewing x-rays and/or diagnostic studies Care of the patient and discussion of the patient with the care team Documentation time To help prompt me to consider important information that might be impacting today's encounter and assessment, Information from prior notes written by myself or my colleagues may have been "brought forward/copy and pasted" into today's note.
[2017-10-31] MEDS ORDERED: Glycopyrrolate Inj 1 MG/5 ML Syringe IV.PUSH ONE (17:05)
[2017-10-31] MEDS ORDERED: Ketorolac Inj 30 MG/ML (IVP) Vial IV.PUSH ONE (17:05)
[2017-10-31] MEDS ORDERED: Lidocaine PF 1% Inj 5 ML Syringe INFILTRATN ONE (17:05)
[2017-10-31] MEDS ORDERED: Neostigmine Inj 5 MG/5 ML Syringe IV.PUSH ONE (17:05)
[2017-10-31] MEDS ORDERED: Bupivacaine/Epinephrine 0.5% Inj 50 ML Vial ONE (17:12)
--- NOTE | 2017-10-31 18:51 | P.OP ---
- Preoperative Diagnosis (1) Acute cholecystitis due to biliary calculus - Postoperative Diagnosis (1) Status post laparoscopic cholecystectomy (2) Acute cholecystitis due to biliary calculus Date of procedure: 10/31/17 Procedure: Laparoscopic cholecystectomy Anesthesia: [facility] Surgeon: Jignesh Lanier MD Pathology: other (Gallbladder cultures were obtained as well) Operation and Findings: PREOPERATIVE DIAGNOSIS: Cholelithiasis And/or Cholecystitis POSTOP DIAGNOSIS: Gangrenous cholecystitis with purulent material within the gallbladder PROCEDURE: Laparoscopic Cholecystectomy Repair of umbilical hernia ANESTHESIA: General SURGEON: Jignesh Lanier M.D. ASST. please see OR records PROCEDURE DETAILS The patient was brought to the operating room and after proper identification. The patient was intubated after the induction of appropriate anesthesia. The patient remained under general anesthesia for the duration of the case. The patient was prepped with an antiseptic over the abdomen in the usual fashion and then he was draped in the usual sterile fashion. Following the draping, a infra-umbilical incision. He had an umbilical hernia we entered the abdomen through this umbilical hernia after direct visualization of the peritoneum, the trocar was introduced and insufflation was begun. After appropriate insufflation a scope was inserted and the abdomen was visually inspected to be benign in gross visualization. Next, another 5 mm port was placed just below the xiphoid. This was then followed by the placement of 5 mm ports in between the 2 previously placed ports. All port sites were anesthetized with a Marcaine solution. We placed a third working port in the right upper quadrant because of the amount of inflammation of the gallbladder The gallbladder was easily identified. There were a few adhesions. No intraabdominal fluid. Upon retraction of the gallbladder, the infundibulum was identified. The gallbladder was fairly inflamed we had to aspirate the gallbladder and a return of pure purulent material which was sent for culture. After some blunt dissection, the cystic duct was identified and then skeletonized using the small grasper. After appropriate identification of the cystic duct, it was clipped 3 times with 2 clips staying, 1 clip going. It was then transected with scissors. This was performed without any complication. Next, a cystic artery was not identified as it was thrombosed because of the amount of inflammation. Following this, the gallbladder was easily retracted back and electrocautery was used to dissect the gallbladder fossa. After application of the clips, no further bleeding from this site was appreciated. Hemostasis was attained on the gallbladder fossa using a small amount of electrocautery and [place] following the removal of the gallbladder from the gallbladder fossa, it was placed in an endobag and subsequently removed from the supraumbilical port site. We double checked for hemostasis at the cystic artery. Also checked the cystic duct stump which showed no bile leakage. Because the amount of inflammatory response a PHILLY was placed exiting the right upper quadrant port site and secured to the skin with a 3-0 nylon All ports were then removed. The umbilical hernia defect was then dissected free from the surrounding tissues in this hernia defect was reapproximated with 0 Vicryl in a vertical fashion. The infra-umbilical fascia was closed directly with 0 Vicryl and then the dermis was closed at all 3 incision sites with a 4-0 absorbable monofilament in a running subcuticular manner. The fascia was closed in a simple interrupted manner. Steri-Strips and dressings were placed over the incision sites. The patient was awakened from anesthesia. The patient was returned to post-anesthesia care unit in a stable condition. DETAIL SPECIFIC TO THIS PROCEDURE: The gallbladder was fairly inflamed Had a large stone in the gallbladder Purulent material in the gallbladder which was cultured drain was placed because of the amount of inflamed tissue Jignesh Lanier M.D.
[2017-10-31] MEDS ORDERED: fentaNYL Citrate Inj 100 MCG/2 ML Ampul ONE (19:02)
[2017-10-31] MEDS ORDERED: *morphine SULFATE 10 MG/ML PERIprocedure ONLY ONE (19:45)
[2017-11-01] MEDS: Piperacil/Tazo 3.375 GM Premix 50 ML IV.SIG SCH ×2 (00:46→06:06)
[2017-11-01] MEDS: Sod Chloride 0.9% Inj 1,000 ML IV.CONT SCH (02:38)
[2017-11-01] MEDS: Morphine Sulfate Inj 2 MG/ML Vial IV.PUSH PRN ×2 (03:24→06:36)
--- NOTE | 2017-11-01 09:05 | P.DS ---
Date of admission: 10/30/17 19:50 Primary care physician: No Primary Care Physician Brief History from admission: 46-year-old male with no significant past medical history presents the emergency department for evaluation of abdominal pain 3 days. The patient reports that 3 days ago he began having epigastric abdominal pain. He denies any nausea/vomiting. No fevers/chills. No chest pain or shortness of breath. CT concerning for acute cholecystitis. DS: Diagnosis - Discharge Diagnosis (1) Acute cholecystitis Status: Acute (2) Acute cholecystitis due to biliary calculus Status: Acute (3) Status post laparoscopic cholecystectomy Status: Acute DS: Medications - Discharge Medications Prescriptions: amoxicillin-pot clavulanate [Augmentin] 1 tab PO Q12H 5 Days #10 tab hydrocodone-acetaminophen 1 tab PO Q4H PRN #18 tab PRN Reason: acute post op pain exception DS: Summary Hospital Course: Pleasant 46 yo male, with Acute cholecystitis CT of the abdomen/pelvis significant for cholelithiasis, gallbladder wall thickening and pericholecystic inflammatory stranding consistent with cholecystitis Received Zosyn Patient with Gangrenous cholecystitis with purulent material within the gallbladder Laparoscopic Cholecystectomy, Repair of umbilical hernia by general surgery Dr Lanier on e 10/31/17. Has drain in place, to follow up as OP Tolerates food Cleared by gen surg for DC to follow up as OP with gen surg DC home in stable condition to follow up as OP with PCP and consultants. Clinical condition at DC: no fever or chills. Pain is controlled by meds. Tolerates food - Time Spent with Patient Total time spent providing and/or coordinating discharge services: Greater than 30 minutes - Quality: VTE Deep Vein Thrombosis/Pulmonary Embolism Present on Admission: No Exam Vital signs: Vital Signs 10/31/17 12:00 10/31/17 16:00 10/31/17 18:58 Temperature 97.4 F L 98.7 F 97.5 F L Pulse Rate 83 100 H 87 Respiratory Rate 17 17 15 Blood Pressure 120/69 130/72 113/64 Pulse Oximetry 98 97 98 10/31/17 19:30 10/31/17 19:45 10/31/17 19:57 Temperature 97.8 F Pulse Rate 104 H 96 H 95 H Respiratory Rate 11 L 23 12 Blood Pressure 112/71 134/75 120/70 Pulse Oximetry 100 95 94 L 10/31/17 20:00 11/01/17 00:00 11/01/17 04:00 Temperature 97.3 F L 97.6 F 97.7 F Pulse Rate 85 76 71 Respiratory Rate 17 17 17 Blood Pressure 119/73 123/66 104/61 Pulse Oximetry 95 96 96 11/01/17 07:59 Temperature 97.9 F Pulse Rate 63 Respiratory Rate 18 Blood Pressure 104/59 L Pulse Oximetry 96 Intake & Output 10/31/17 11/01/17 11/01/17 18:59 06:59 18:59 Intake Total 1050 / 1050 1360 / 1360 Output Total 560 / 560 Balance 1050 / 1050 800 / 800 Intake: IV 1050 / 1050 400 / 400 NS Inj 1,000 ML @ 100 mls/hr IV 1000 / 1000 .CONT .Q10H KEVIN Rx#:[id number] Ofirmev Inj 1,000 mg In 100 ml 300 / 300 @ 400 mls/hr IV.SIG Q6H KEVIN Rx# :[id number] Zosyn 3.375 GM Premix 50 ML @ 50 / 50 100 / 100 100 mls/hr IV.SIG Q6H KEVIN Rx#: [id number] Oral 960 / 960 Output: Urine 450 / 450 Wound Drainage 110 / 110 Right Anterior Abdomen 110 / 110 Other: # Voids 2 Narrative: Gen.: 46 yo male, in no acute distress Cardiovascular: Regular rate and rhythm. No murmurs, rubs or gallops. Respiratory: Lungs clear to auscultation bilaterally. No wheezes or rhonchi. Abdomen: Soft, tenderness at the surgical site, drain in place, nondistended. No peritoneal signs. Positive Tillman's sign. Musculoskeletal: No gross deformities. No edema. Skin: No obvious rashes or erythema. Neuro: Sensory and motor grossly intact. Cranial nerves II through XII grossly intact. Results Procedures completed during hospitalization: lap francis by Dr Lanier on 10/31/17 Pending studies at discharge: Pending at discharge 10/31/17 07:22 Surgical [PTH] Routine Labs on day of discharge: Preliminary micro results at discharge 10/30/17 18:15 Aerobic Blood Culture - Preliminary Blood - Peripheral No growth in 1 day Anaerobic Blood Culture - Preliminary No growth in 1 day 10/30/17 18:20 Aerobic Blood Culture - Preliminary Blood - Peripheral No growth in 1 day Anaerobic Blood Culture - Preliminary No growth in 1 day - Impressions ITS Impressions Abdomen/Pelvis CT 10/30/17 17:05 CONCLUSION: 1. There is cholelithiasis, gallbladder wall thickening and pericholecystic inflammatory stranding characteristic of cholecystitis. 2. Atherosclerosis. 3. Nonobstructing right renal calculi. 4. Tiny cyst is noted in the right lobe of the liver measuring 8 mm. Discharge Plan - Discharge Disposition Patient Disposition: 01 Discharge Home - Discharge Condition Condition: Stable - Discharge Order Discharge Orders: Discharge Order (Routine); Ordered 11/01/17 Ordered By: Galilea Duarte - Physicians Team Primary Care Provider: Primary Care Olga Cramer Attending Provider: Galilea Duarte Other Providers: Jignesh Lanier MD
--- NOTE | 2017-11-01 11:42 | P.PNGS ---
Subjective Patient reports: feels better Interval history: DAILY PROGRESS NOTE FOR SURGICAL ATTENDING, DR. SARBJIT LANIER Resting in bed Sore but feeling better Physical Exam Vital signs: Vital Signs 10/31/17 12:00 10/31/17 16:00 10/31/17 18:58 Temperature 97.4 F L 98.7 F 97.5 F L Pulse Rate 83 100 H 87 Respiratory Rate 17 17 15 Blood Pressure 120/69 130/72 113/64 Pulse Oximetry 98 97 98 10/31/17 19:30 10/31/17 19:45 10/31/17 19:57 Temperature 97.8 F Pulse Rate 104 H 96 H 95 H Respiratory Rate 11 L 23 12 Blood Pressure 112/71 134/75 120/70 Pulse Oximetry 100 95 94 L 10/31/17 20:00 11/01/17 00:00 11/01/17 04:00 Temperature 97.3 F L 97.6 F 97.7 F Pulse Rate 85 76 71 Respiratory Rate 17 17 17 Blood Pressure 119/73 123/66 104/61 Pulse Oximetry 95 96 96 11/01/17 07:59 Temperature 97.9 F Pulse Rate 63 Respiratory Rate 18 Blood Pressure 104/59 L Pulse Oximetry 96 Intake & Output 10/31/17 11/01/17 11/01/17 18:59 06:59 18:59 Intake Total 1050 / 1050 1360 / 1360 Output Total 560 / 560 Balance 1050 / 1050 800 / 800 Intake: IV 1050 / 1050 400 / 400 NS Inj 1,000 ML @ 100 mls/hr IV 1000 / 1000 .CONT .Q10H KEVIN Rx#:[id number] Ofirmev Inj 1,000 mg In 100 ml 300 / 300 @ 400 mls/hr IV.SIG Q6H KEVIN Rx# :[id number] Zosyn 3.375 GM Premix 50 ML @ 50 / 50 100 / 100 100 mls/hr IV.SIG Q6H KEVIN Rx#: [id number] Oral 960 / 960 Output: Urine 450 / 450 Wound Drainage 110 / 110 Right Anterior Abdomen 110 / 110 Other: # Voids 2 Narrative: Alert and awake Abd: soft; incision sites c/d/i; PHILLY with SS fluid Assessment and Plan - Assessment (1) Acute cholecystitis Code(s): K81.0 - Acute cholecystitis Status: Acute Plan: 46 year old male with acute cholecystitis -POD1 lap francis -DC with PHILLY drain -Regular diet -Rx for [place] and Augmentin on chart -Follow up Saturday with Dr. Lanier pt doing well DC home fu later (2) Status post laparoscopic cholecystectomy Code(s): Z90.49 - Acquired absence of other specified parts of digestive tract Status: Acute - Attending Attestation NOTE FOR SURGICAL ATTENDING, DR. SARBJIT LANIER I agree with above assessment and plan. The exam, history, and the medical decision-making described in the above note were completed with the assistance of the mid-level provider. I reviewed and agree with the findings presented. I attest that I had a [id number] encounter with the patient on the same day, and personally performed and documented my assessment and findings in the medical record. The following services were provided during this hospital visit: Chart data review, vital sign assessments/reviewing monitor data Review of consultations notes if present. Medication orders/review and/or management Ordering and/or reviewing lab tests Ordering and/or interpreting/reviewing x-rays and/or diagnostic studies Care of the patient and discussion of the patient with the care team Documentation time To help prompt me to consider important information that might be impacting today's encounter and assessment, Information from prior notes written by myself or my colleagues may have been "brought forward/copy and pasted" into today's note.
== END 2017-11-01 12:19 | disposition home or self-care (01) ==
LOC: NEPD 16:23 → NEDA 19:50 → N07 21:34
PROVIDERS: ADMIT Hospitalist; ATTEND Hospitalist